=== PATIENT | male | born 1995 | race African-American/Black ===

== ENCOUNTER 2016-10-01 21:23 | Emergency (ER) | payer BC ==
[2016-10-01] MEDS ORDERED: SODIUM CHLORIDE 0.9% 1,000 ML ONE (23:20)
[2016-10-01] MEDS ORDERED: HYOSCYAMINE 0.5 MG/ML AMP 1 ML ONE (23:34)
== END 2016-10-02 00:52 | disposition home or self-care (01) ==
LOC: ER 21:23
DX: K29.00 Acute gastritis without bleeding (principal); R20.2 Paresthesia of skin
CPT/HCPCS: 36415; 76705; 80053; 81003; 83690; 85025; 96361; 96374